=== PATIENT | male | born 1980 | race Caucasian/White ===

== ENCOUNTER 2020-03-29 07:33 | Emergency (ER) | payer OTHER, SELFPAY ==
--- NOTE | ~2020-03-29 | XR_ITS ---
EXAMINATION: XR chest 1V portable INDICATION: Cough TECHNIQUE: Portable AP chest at 0816 hours COMPARISON: None available FINDINGS: There are patchy opacities of the lung bases and the paramediastinal aspect of the right up per lobe. No pleural effusion or pneumothorax is identified. The cardiomediastinal silhouette is norm al. IMPRESSION: 1. Patchy bilateral airspace opacities, likely pneumonia. Reviewed, dictated and finalized at location [facility]. [facility]
[2020-03-29 07:36] VITALS: BP 146/84; PULSE 98; RESP 20; TEMP 37.2; O2SAT 99
--- NOTE | 2020-03-29 08:53 | ECG_ITS ---
Measurements Intervals Harper Rate: 84 P: 58 NV: 143 QRS: 33 QRSD: 94 T: 63 QT: 338 QTc: 400 Interpretive Statements SINUS RHYTHM BASELINE ARTIFACT- I, V1 NORMAL ECG Electronically Signed On 03-29-2020 17:41:50 COMMUNITY DEVELOPMENT COORDINATOR by Neto Torres D.O.
--- NOTE | 2020-03-29 08:55 | ED.GENADULT ---
HPI - General Adult General Chief complaint: Upper Respiratory Infection Stated complaint: Chest cold Time Seen by Provider: 03/29/20 08:05 Source: patient History of Present Illness HPI narrative: Patient is a 39 y/o male complaining of chest tightness for last 2-3 days. He states that his chest discomfort radiates to his back. He rates it as 5/10. There is no alleviating or exacerbating factor. He also has cough with greenish sputum and SOB. He denies any fever. Related Data Allergies Allergy/AdvReac Type Severity Reaction Status Date / Time No Known Allergies Allergy Verified 03/29/20 07:38 Review of Systems Constitutional: Constitutional: Denies chills, Denies fever(s), Denies headache(s) and Denies weakness Eyes: Eyes: Denies blurry vision ENT: Denies headache(s) and Denies neck pain Cardiovascular: Cardiovascular: Reports chest pain and Reports dyspnea Respiratory: Respiratory: Reports cough and Reports dyspnea Gastrointestinal: Gastrointestinal: Denies abdominal pain, Denies diarrhea, Denies nausea and Denies vomiting Genitourinary: Genitourinary: Denies hematuria and Denies dysuria Musculoskeletal: Musculoskeletal: Denies back pain and Denies neck pain Neurologic: Denies headache(s) and Denies weakness [facility] Social History Social History Gender identity (if verbalized by the patient): Male Exam Const: General: no acute distress and well developed Orientation/consciousness: oriented to person, oriented to place, oriented to time and patient oriented x3 HENMT: Head: normocephalic Ears: external ears normal General nose exam: Normal external nose present Eyes: General: appearance normal, both eyes and all related structures Conjunctivae: conjunctivae normal Neck: Neck: normal visual inspection and full ROM Chest: Chest palpation & inspection: normal inspection of the chest and no tenderness Resp: Effort & Inspection: normal respiratory effort Auscultation: clear to auscultation bilaterally Cardio: Rate: regular rate Rhythm: regular rhythm GI: GI Palp: No abdominal tenderness and Yes Soft to palpation Skin: General skin exam: normal color and turgor normal Neuro: General: oriented to person, oriented to place, oriented to time and patient oriented x3 Cognition (Neuro): normal cognition Extrem: General: normal to inspection, full ROM and no pedal edema Psych: Appearance: grossly normal Mental Status: mental status grossly normal Affect: normal affect Course Reevaluation(s) Reevaluation #1: Patient wants to leave AMA prior to full evaluation. He is awake, alert and competent to make medical decision for himself. He will leave AMA. Date: 03/29/20 Time: 12:15 Vital Signs Vital signs: Vital Signs Temperature 37.2 C 03/29/20 07:36 Pulse Rate 98 03/29/20 07:36 Respiratory Rate 20 03/29/20 07:36 Blood Pressure 146/84 H 03/29/20 07:36 Pulse Oximetry 99 03/29/20 07:36 Temperature 37.2 C 03/29/20 07:36 Pulse Rate 98 03/29/20 07:36 Respiratory Rate 20 03/29/20 07:36 Blood Pressure 146/84 H 03/29/20 07:36 Pulse Oximetry 99 03/29/20 07:36 Medical Decision Making Vital Signs Vital Signs: Vital Signs Temperature 37.2 C 03/29/20 07:36 Pulse Rate 98 03/29/20 07:36 Respiratory Rate 20 03/29/20 07:36 Blood Pressure 146/84 H 03/29/20 07:36 Pulse Oximetry 99 03/29/20 07:36 Temperature 37.2 C 03/29/20 07:36 Pulse Rate 98 03/29/20 07:36 Respiratory Rate 03/29/20 07:36 Blood Pressure 146/84 H 03/29/20 07:36 Pulse Oximetry 99 03/29/20 07:36 Lab Data Result diagrams: 03/29/20 09:38 03/29/20 09:38 Labs: Lab Results 03/29/20 03/29/20 03/29/20 Range/Units 09:38 09:38 09:38 WBC 13.2 H (4.5-10.0) K/mm3 RBC 5.31 (4.6-6.20) M/mm3 Hgb 15.2 (14.0-18.0) g/dL Hct 46.3 (42.0-52.0) % MCV 87.2 (80-100) fl MCH 28.
[2020-03-29 09:45] LABS: Basophils Absolute Auto 0.1 K/mm3 (0.0-0.1); Basophils Percent Auto 0.5 % (0.2-1.2); Eosinophils Absolute Auto 0.3 K/mm3 (0-0.3); Hematocrit 46.3 % (42.0-52.0); Hemoglobin 15.2 g/dL (14.0-18.0); Immature Granulocyte Absolute 0.13 K/mm3 (0.00-0.031); Lymphocytes Absolute Auto 1.36 K/mm3 (0.9-3.2); Lymphocytes Percent Auto 10.3 % (18.3-44.2); Mean Corpuscular HGB Conc 32.8 g/dl (32-36); Mean Corpuscular Hemoglobin 28.6 pg (26-34); Mean Corpuscular Volume 87.2 fl (80-100); Mean Platelet Volume 9.6 fl (7.4-10.4); Monocytes Absolute Auto 0.7 K/mm3 (0.1-0.6); Monocytes Percent Auto 5.5 % (2.6-8.5); Neutrophils Absolute Auto 10.6 K/mm3 (1.3-6.7); Neutrophils Percent Auto 80.7 % (45.5-73.1); Platelet Count Result 402 k/mm3 (150-375); Red Blood Count 5.31 M/mm3 (4.6-6.20); Red Cell Distribution Width 13.6 % (11.5-14.5); White Blood Count 13.2 K/mm3 (4.5-10.0)
[2020-03-29 10:01] LABS: Alanine Aminotransferase 22 U/L (4-50); Albumin Level 3.9 g/dL (3.5-5.1); Alkaline Phosphatase 86 U/L (38-126); Anion Gap 9 mmol/L (8-16); Aspartate Amino Transferase 19 U/L (17-59); Bilirubin,Total 0.6 mg/dL (0.2-1.3); Blood Urea Nitrogen 21 mg/dL (9-20); Calcium 9.1 mg/dL (8.4-10.2); Carbon Dioxide 24 mmol/L (22-30); Chloride 103 mmol/L (98-107); Estimated CRCL calculation 139 ml/min; Estimated Glomerular Filt Rate > 60; Glucose 221 mg/dL (75-110); Potassium 4.1 mmol/L (3.4-5.0); Sodium 136 mmol/L (137-145)
[2020-03-29 10:08] LABS: Troponin I < 0.012 ng/mL (0.000-0.034)
[2020-03-29 10:10] LABS: NT Pro B Type Natriuretic Pept 24 PG/ML (5-100)
[2020-03-29 11:30] VITALS: BP 120/81; PULSE 96; RESP 23; TEMP 36.7; O2SAT 98
[2020-03-29 12:15] VITALS: BP 137/81; PULSE 102; RESP 26; TEMP 36.6; O2SAT 97
[2020-03-29 23:54] LABS: SARS-CoV-2 RNA PCR Negative
== END 2020-03-29 12:20 | disposition left against medical advice (07) ==
PROVIDERS: Emergency Provider Emergency Medicine
DX: R05 Cough (principal); Z20.828 Contact with and (suspected) exposure to other viral communicable diseases
CPT/HCPCS: 36415; 71045; 80053; 83880; 84484; 85025; 87635; 93005; 99284; C9803; U0003